=== PATIENT | male | born 2000 | race Asian ===

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

== ENCOUNTER 2021-06-29 11:05 | Emergency (ER) | payer OTHER ==
[2021-06-29 11:20] VITALS: BP 145/56
--- NOTE | 2021-06-29 11:33 | ED Physician Documentation ---
PD HPI LOWER EXT INJURY - Stated complaint Stated Complaint: L ANKLE INJ - Chief complaint Chief Complaint: Trauma Ext - History obtained from History obtained from: Patient - History of Present Illness PD HPI LOW EXT INJURY LOCATION: Left, Ankle Type of injury: Twist Where injury occurred: [place] Timing - onset: How many days ago (3) Timing - duration: Days (3) Timing - details: Abrupt onset, Still present Improved by: Rest, Ice, Immobilization Worsened by: Moving, Palpating Associated symptoms: Swelling. No: Weakness, Numbness, Discolored Contributing factors: No: Anticoagulated Similar symptoms before: Has not had sx before Recently seen: Not recently seen - Additional information Additional information: 21-year-old male playing soccer when he stepped in a hole and twisted his left ankle. He has pain to the lateral aspect of the ankle and he was not able to bear any weight on it initially. Over the last 2 days he has been able to slowly bear some weight on it and he is ambulating on crutches. Review of Systems Constitutional: denies: Fever Ears: denies: Ear pain Nose: denies: Congestion GI: denies: Vomiting Skin: denies: Rash Musculoskeletal: reports: Extremity pain, Joint pain, Joint swelling, Pain with weight bearing. denies: Neck pain, Back pain Neurologic: denies: Generalized weakness, Focal weakness, Numbness PD PAST MEDICAL HISTORY - Past Surgical History Past Surgical History: Yes Ortho: ACL reconstruction - Present Medications Home Medications: Ambulatory Orders Medication Instructions Recorded Confirmed No Known Home Medications 10/03/14 06/29/21 - Allergies Allergies/Adverse Reactions: Allergies Allergy/AdvReac Type Severity Reaction Status Date / Time No Known Drug Allergies Allergy Verified 06/29/21 11:20 - Social History Does the pt smoke?: No Smoking Status: Never smoker Does the pt drink ETOH?: No Does the pt have substance abuse?: No - Immunizations Immunizations are current?: Yes - POLST Patient has POLST: No PD ED PE NORMAL - Vitals Vital signs reviewed: Yes (hypertensive ) - General General: Alert and oriented X 3, No acute distress, Well developed/nourished - HEENT HEENT: Atraumatic, PERRL, EOMI - Respiratory Respiratory: No respiratory distress - Derm Derm: Normal color, Warm and dry, No rash - Extremities Extremities: No deformity, Other (There is swelling and point tenderness to the lateral malleolus and over the talofibular ligament. There is no tenderness to the proximal fifth and no tenderness to the medial malleolus. Dorsum of the foot without findings.) - Neuro Neuro: Alert and oriented X 3, roof mechanic 2-12 intact, No motor deficit, No sensory deficit, Normal speech Eye Opening: Spontaneous Motor: Obeys Commands Verbal: Oriented GCS Score: 15 - Psych Psych: Normal mood, Normal affect Results - Vitals Vitals: Vital Signs - 24 hr 06/29/21 11:17 Temperature 36.1 C L Heart Rate 62 Respiratory 20 Rate Blood Pressure 145/56 H O2 Saturation 97 Oxygen O2 Source Room air - Rads (name of study) ankle Radiology: Prelim report reviewed (Impression: No acute ankle fracture or dislocation. Lateral ankle soft tissue swelling.), EMP read indepedently, See rad report PD MEDICAL DECISION MAKING - ED course Complexity details: reviewed results, re-evaluated patient, considered differential, d/w patient ED course: 21-year-old male with a sprain left ankle has no evidence of fracture on x-ray he is placed into an ankle stirrup and instructed to wear this / for the next 2 weeks. Departure - Departure Disposition: 01 Home, Self Care Clinical Impression: Left ankle sprain Qualifiers: Encounter type: initial encounter Involved ligament of ankle: calcaneofibular ligament Qualified Code(s): S93.412A - Sprain of calcaneofibular ligament of left ankle, initial encounter Instructions: ED Sprain Ankle W X Ray Follow-Up: [facility] [place] [Provider Group] Discharge Date/Time: 06/29/21 12:58
--- NOTE | 2021-06-29 11:46 | XRAY Report ---
PROCEDURE: Ankle 3 View LT INDICATIONS: trauma TECHNIQUE: 3 views of the ankle were acquired. COMPARISON: 09/09/2020 FINDINGS: Bones: No fractures or dislocations. Ankle mortise is normally aligned. No suspicious bony lesions . Soft tissues: No tibiotalar joint effusion. Achilles tendon appears normal. Soft tissue swelling o george lateral malleolus is seen. IMPRESSION: No acute ankle fracture or dislocation. Lateral ankle soft tissue swelling. Reviewed by: Antonio Damon MD on 06/29/2021 11:45 AM PDT Approved by: Antonio Damon MD on 06/29/2021 11:45 AM PDT Station ID: [id number]
== END 2021-06-29 12:58 | disposition home or self-care (01) ==
LOC: ED 11:05
DX: S93.412A Sprain of calcaneofibular ligament of left ankle, initial encounter (principal); W17.2XXA Fall into hole, initial encounter; X50.1XXA Overexertion from prolonged static or awkward postures, initial encounter; Y93.66 Activity, soccer; Y92.830 Public park as the place of occurrence of the external cause
CPT/HCPCS: 99282; 99283